=== PATIENT | male | born 1965 | race Caucasian/White ===

== ENCOUNTER 2023-05-09 23:45 | Observation (INO) | payer OTHER ==
[2023-05-10 01:05] LABS: Basophils # (A) 0.1 k/uL (0-0.2); Basophils % (A) 1 %; Eosinophils # (A) 0.2 k/uL (0-0.7); Eosinophils % (A) 2 %; HCT 43.4 % (39.0-53.0); HGB 14.7 gm/dL (13.0-17.5); Lymphocytes # (A) 2.1 k/uL (1.0-4.8); Lymphocytes % (A) 28 %; MCH 29.6 pg (25.0-35.0); MCHC 33.8 g/dL (31.0-37.0); MCV 87.6 fL (80.0-100.0); Mean Platelet Volume 8.6; Monocytes # (A) 0.5 k/uL (0-1.0); Monocytes % (A) 6 %; Neutrophils # (A) 4.5 k/uL (1.3-7.7); Neutrophils % (A) 60 %; Platelet Count 242 k/uL (150-450); RBC 4.96 m/uL (4.30-5.90); RDW 12.9 % (11.5-15.5); WBC 7.4 k/uL (3.8-10.6)
--- NOTE | 2023-05-10 01:11 | ED ---
General Adult HPI - General Chief complaint: Arrhythmia/Palpitations Stated complaint: AFib Time Seen by Provider: 05/09/23 23:51 Source: EMS Mode of arrival: EMS - History of Present Illness Initial comments: Dictation was produced using PEPper[employer] dictation software. please excuse any grammatical, word or spelling errors. Chief Complaint: 58-year-old male presents to the emergency department palpitations History of Present Illness: Patient is a 58-year-old male has past medical history of A-fib. He states that he was at home for the last 2 hours when all of a sudden he developed intense palpitations. States that he could feel his heartbeat in his chest. Patient has a history of A-fib. He does not take anticoagulation medications due to low [id number] score along with the risk of bleeding due to his occupation. Patient also complains of some mild pressure in his chest. The ROS documented in this emergency department record has been reviewed and confirmed by me. Those systems with pertinent positive or negative responses have been documented in the HPI. All other systems are other negative and/or noncontributory. - Related Data Allergies Allergy/AdvReac Type Severity Reaction Status Date / Time No Known Allergies Allergy Verified 05/09/23 23:53 Review of Systems ROS Statement: Those systems with pertinent positive or pertinent negative responses have been documented in the HPI. ROS Other: All systems not noted in ROS Statement are negative. Past Medical History Past Medical History: Atrial Fibrillation, Hypertension Additional Past Medical History / Comment(s): Pt states he has a heart murmur as well as ADHD Past Surgical History: Heart Catheterization, Orthopedic Surgery Additional Past Surgical History / Comment(s): Right shoulder surgery. Bursitis treatment General Exam - General Exam Comments Initial Comments: PHYSICAL EXAM: General Impression: Alert and oriented x3, not in acute distress HEENT: Normocephalic atraumatic, extra-ocular movements intact, pupils equal and reactive to light bilaterally, mucous membranes moist. Cardiovascular: Irregular Chest: Able to complete full sentences, no retractions, no tachypnea Abdomen: abdomen soft, non-tender, non-distended, no organomegaly Musculoskeletal: Pulses present and equal in all extremities, no peripheral edema Motor: no focal deficits noted Neurological: CN II-XII grossly intact, no focal motor or sensory deficits noted Skin: Intact with no visualized rashes Psych: Normal affect and mood Course Vital Signs 05/09/23 05/10/23 23:46 01:05 Temperature 98 F Pulse Rate 126 H 89 Respiratory 18 18 Rate Blood Pressure 142/121 110/81 O2 Sat by Pulse 98 96 Oximetry EKG Findings - EKG Comments: EKG Findings:: My EKG interpretation: Ventricular rate 105, A-fib, QRS 100, QTc 395. NoQTC prolongation, no ST or T-wave changes noted. Overall, this EKG is unremarkable Medical Decision Making - Medical Decision Making Was pt. sent in by a medical professional or institution (, PEDRO, SHIPPING SPECIALIST, urgent care, hospital, or senior care...) When possible be specific @ -No Did you speak to anyone other than the patient for history (EMS, parent, family, police, friend...)? What history was obtained from this source @ -No Did you review nursing and triage notes (agree or disagree)? Why? @ -I reviewed and agree with nursing and triage notes Were old charts reviewed (outside hosp., previous admission, EMS record, old EKG, old radiological studies, urgent care reports/EKG's, senior care records)? Report findings @ -No old charts were reviewed Differential Diagnosis (chest pain, altered mental status, abdominal pain women, abdominal pain men, vaginal bleeding, musculoskeletal, weakness, fever, dyspnea, syncope, headache, dizziness, GI bleed, back pain, seizure, CVA, palpatations, mental health)? @ -Differential Chest Pain: Stable Angina, Unstable Angina, STEMI, NSTEMI Aortic Dissection, Pneumothorax, Musculoskeletal, Esophageal Spasm GERD, Cholecystitis, Pancreatitis, Zoster, this is not meant to be an all-inclusive list. EKG interpreted by me (3pts min.). @ -See above X-rays interpreted by me (1pt min.). @ -Chest x-ray shows no acute processes CT interpreted by me (1pt min.). @ -None done U/S interpreted by me (1pt. min.). @ -None done What testing was considered but not performed or refused? (CT, X-rays, U/S, labs)? Why? @ -None What meds were considered but not given or refused? Why? @ -None Did you discuss the management of the patient with other professionals (professionals i.e. , PEDRO, SHIPPING SPECIALIST, lab, RT, psych nurse, social services technician, deputy treasurer, teacher, correctional security officer, counter caser)? Give summary @ -Case discussed with hospitalist for admission Was smoking cessation discussed for >3mins.? @ -No Was critical care preformed (if so, how long)? @ -No Were there social determinants of health that impacted care today? How? (Homelessness, low income, unemployed, alcoholism, drug addiction, transportation, low edu. Level, literacy, decrease access to med. care, nursing home, rehab)? @ -No Was there de-escalation of care discussed even if they declined (Discuss DNR or withdrawal of care, Hospice)? DNR status @ -No What co-morbidities impacted this encounter? (DM, HTN, Smoking, COPD, CAD, Cancer, CVA, ARF, Chemo, Hep., AIDS, mental health diagnosis, sleep apnea, morbid obesity)? @ -None Was patient admitted / discharged? Hospital course, mention meds given and route, prescriptions, significant lab abnormalities, going to OR and other perti nent info. @ -58-year-old male presents emergency department with palpitations and atypical chest pain typical features. V vital signs upon arrival showed slight tachycardia. He is in A-fib. Patient's A-fib was rate controlled at rest while at the bedside. Laboratory evaluation is unremarkable. Troponin is negative. Patient states that he has pressure to his chest. Suspect that patient having acute coronary syndrome. Disposition options were discussed he is agreeable with observation admission with consultation to cardiology. Patient given aspirin Undiagnosed new problem with uncertain prognosis? @ -No Drug Therapy requiring intensive monitoring for toxicity (Heparin, Nitro, Insul in, Cardizem)? @ -No Were any procedures done? @ -No Diagnosis/symptom? Acute, or Chronic, or Acute on Chronic? Uncomplicated (without systemic symptoms) or Complicated (systemic symptoms)? @ -Chest pain Side effects of treatment? @ -No Exacerbation, Progression, or Severe Exacerbation? @ -No Poses a threat to life or bodily function? How? (Chest pain, USA, PR, pneumonia, PE, COPD, DKA, ARF, appy, cholecystitis, CVA, Diverticulitis, Homicidal, Suicidal, threat to staff... and all critical care pts) @ -Yes - Lab Data Result diagrams: 05/10/23 00:51 05/10/23 00:51 Lab Results 05/10/23 05/10/23 05/10/23 Range/Units 00:51 00:51 00:51 WBC 7.4 (3.8-10.6) k/uL RBC 4.96 (4.30-5.90) m/uL Hgb 14.7 (13.0-17.5) gm/dL Hct 43.4 (39.0-53.0) % MCV 87.6 (80.0-100.0) fL MCH 29.6 (25.0-35.0) pg MCHC 33.8 (31.0-37.0) g/dL RDW 12.9 (11.5-15.5) % Plt Count 242 (150-450) k/uL MPV 8.6 Neutrophils % 60 % Lymphocytes % 28 % Monocytes % 6 % Eosinophils % 2 % Basophils % 1 % Neutrophils # 4.5 (1.3-7.7) k/uL Lymphocytes # 2.1 (1.0-4.8) k/uL Monocytes # 0.5 (0-1.0) k/uL Eosinophils # 0.2 (0-0.7) k/uL Basophils # 0.1 (0-0.2) k/uL PT 10.3 (10.0-12.5) sec INR 0.9 (<1.2) APTT 26.8 (22.0-30.0) sec Sodium 141 (137-145) mmol/L Potassium 3.5 (3.5-5.1) mmol/L Chloride 107 (98-107) mmol/L Carbon Dioxide 24 (22-30) mmol/L Anion Gap 10 mmol/L BUN 23 H (9-20) mg/dL Creatinine 0.95 (0.66-1.25) mg/dL Est GFR (CKD-EPI)AfAm >90 (>60 ml/min/1.73 sqM) Est GFR (CKD-EPI)NonAf 87 (>60 ml/min/1.73 sqM) Glucose 113 H (74-99) mg/dL Calcium 10.0 (8.4-10.2) mg/dL Magnesium 1.9 (1.6-2.3) mg/dL Total Bilirubin 0.4 (0.2-1.3) mg/dL AST 27 (17-59) U/L ALT 25 (4-49) U/L Alkaline Phosphatase 99 (38-126) U/L Troponin I (0.000-0.034) ng/mL Total Protein 7.1 (6.3-8.2) g/dL Albumin 4.2 (3.5-5.0) g/dL 05/10/23 Range/Units 00:51 WBC (3.8-10.6) k/uL RBC (4.30-5.90) m/uL Hgb (13.0-17.5) gm/dL Hct (39.0-53.0) % MCV (80.0-100.0) fL MCH (25.0-35.0) pg MCHC (31.0-37.0) g/dL RDW (11.5-15.5) % Plt Count (150-450) k/uL MPV Neutrophils % % Lymphocytes % % Monocytes % % Eosinophils % % Basophils % % Neutrophils # (1.3-7.7) k/uL Lymphocytes # (1.0-4.8) k/uL Monocytes # (0-1.0) k/uL Eosinophils # (0-0.7) k/uL Basophils # (0-0.2) k/uL PT (10.0-12.5) sec INR (<1.2) APTT (22.0-30.0) sec Sodium (137-145) mmol/L Potassium (3.5-5.1) mmol/L Chloride (98-107) mmol/L Carbon Dioxide (22-30) mmol/L Anion Gap mmol/L BUN (9-20) mg/dL Creatinine (0.66-1.25) mg/dL Est GFR (CKD-EPI)AfAm (>60 ml/min/1.73 sqM) Est GFR (CKD-EPI)NonAf (>60 ml/min/1.73 sqM) Glucose (74-99) mg/dL Calcium (8.4-10.2) mg/dL Magnesium (1.6-2.3) mg/dL Total Bilirubin (0.2-1.3) mg/dL AST (17-59) U/L ALT (4-49) U/L Alkaline Phosphatase (38-126) U/L Troponin I <0.012 (0.000-0.034) ng/mL Total Protein (6.3-8.2) g/dL Albumin (3.5-5.0) g/dL Disposition Clinical Impression: Chest pain Disposition: ADMITTED IP TO THIS HOSP Condition: Fair Referrals: Josh Graham DO [Primary Care Provider] - 1-2 days Decision Time: 01:47
[2023-05-10 01:13] LABS: INR 0.9 (<1.2); Partial Thromboplastin Time 26.8 sec (22.0-30.0); Prothrombin Time 10.3 sec (10.0-12.5)
--- NOTE | 2023-05-10 01:14 | XR ---
EXAMINATION TYPE: XR chest 2V DATE OF EXAM: 05/10/2023 COMPARISON: NONE HISTORY: Chest pain. Atrial fibrillation. TECHNIQUE: Frontal and lateral views of the chest are obtained. FINDINGS: There is no focal air space opacity, pleural effusion, or pneumothorax seen. Somewhat low lung volumes. The cardiac silhouette size is mildly enlarged. The osseous structures are intact. IMPRESSION: Mild cardiomegaly without acute pulmonary process.
[2023-05-10 01:21] LABS: ALT 25 U/L (4-49); AST 27 U/L (17-59); African American GFR (CKD) >90 (>60 ml/min/1.73 sqM); Albumin 4.2 g/dL (3.5-5.0); Alkaline Phosphatase 99 U/L (38-126); Anion Gap 10 mmol/L; Blood Urea Nitrogen 23 mg/dL (9-20); Carbon Dioxide 24 mmol/L (22-30); Chloride 107 mmol/L (98-107); Glucose 113 mg/dL (74-99); Magnesium 1.9 mg/dL (1.6-2.3); Non-African American GFR(CKD) 87 (>60 ml/min/1.73 sqM); Potassium 3.5 mmol/L (3.5-5.1); Sodium 141 mmol/L (137-145); Total Bilirubin 0.4 mg/dL (0.2-1.3); Total Protein 7.1 g/dL (6.3-8.2)
[2023-05-10] MEDS ORDERED: NITROGLYCERIN SL TABS 0.4 MG TAB SUBLINGUAL PRN (01:43)
[2023-05-10] MEDS: ASPIRIN 81 MG PO STA (01:53)
[2023-05-10] MEDS ORDERED: ONDANSETRON 4 MG/2 ML VIAL IVP PRN (06:15)
[2023-05-10] MEDS ORDERED: ACETAMINOPHEN TAB 325 MG TAB PO PRN (06:15)
--- NOTE | 2023-05-10 10:05 | CA ---
Transthoracic Echo Report Name: Joe Rowe Age: 58 Gender: M : 1965 Exam Date: 05/10/2023 08:10 Exam Location: [place] [facility] Ht (in): 71 Wt (lb): 215 Ordering Physician: Emelyn Serrano Attending/Referring Phys: [id number], Maggie Supervisor [employer] Yoana Cagle RCS Procedure CPT: Indications: LV function, chest pain Cardiac Hx: Technical Quality: Technically difficult study Contrast 1: Definity Total Dose (mL): 2 Contrast 2: Total Dose (mL): MEASUREMENTS (Male / Female) Normal Values 2D ECHO LV Diastolic Diameter PLAX 4.8 cm 4.2 - 5.9 / 3.9 - 5.3 cm LV Systolic Diameter PLAX 3.9 cm IVS Diastolic Thickness 0.8 cm 0.6 - 1.0 / 0.6 - 0.9 cm LVPW Diastolic Thickness 0.7 cm 0.6 - 1.0 / 0.6 - 0.9 cm LV Relative Wall Thickness 0.3 RV Internal Dim ED PLAX 2.9 cm LVOT Diameter 2.3 cm LV Diastolic Volume MOD BP 104.9 cm??? 67 - 155 / 56 - 104 cm??? LV Systolic Volume MOD BP 35.0 cm??? 22 - 58 / 19 - 49 cm??? LV Ejection Fraction MOD BP 66.6 % >= 55 % LV Cardiac Index MOD BP 2598.1 cm???/min???m??? LV Diastolic Volume MOD 4C 101.3 cm??? LV Systolic Volume MOD 4C 33.6 cm??? LV Ejection Fraction MOD 4C 66.8 % LV Cardiac Index MOD 4C 2515.3 cm???/min???m??? LV Diastolic Length 4C 7.5 cm LV Systolic Length 4C 6.2 cm LV Diastolic Volume MOD 2C 105.2 cm??? LV Systolic Volume MOD 2C 36.1 cm??? LV Ejection Fraction MOD 2C 65.7 % LV Cardiac Index MOD 2C 2567.8 cm???/min???m??? LV Diastolic Length 2C 7.8 cm LV Systolic Length 2C 6.1 cm LA Volume 67.1 cm??? 18 - 58 / 22 - 52 cm??? LA Volume Index 30.1 cm???/m??? 16 - 28 cm???/m??? Ascending Aorta Diameter 3.5 cm DOPPLER AV Peak Velocity 113.1 cm/s AV Peak Gradient 5.1 mmHg AV Mean Velocity 71.4 cm/s AV Mean Gradient 2.4 mmHg AV Velocity Time Integral 20.2 cm LVOT Peak Velocity 95.4 cm/s LVOT Peak Gradient 3.6 mmHg LVOT Velocity Time Integral 17.2 cm LVOT Stroke Volume 69.9 cm??? LVOT Stroke Volume Index 32.1 ml/m??? LVOT Cardiac Index 2597.4 cm???/min???m??? AV Area Cont Eq vti 3.5 cm??? AV Area Cont Eq pk 3.4 cm??? PV Peak Velocity 78.3 cm/s PV Peak Gradient 2.5 mmHg FINDINGS Left Ventricle Left ventricular ejection fraction is estimated at 50-55 %. Left ventricular wall thickness normal. Left ventricular cavity size normal. No obvious regional wall motion abnormalities. Right Ventricle Normal right ventricular size and function. Right Atrium Normal right atrial size. Left Atrium Mildly increased left atrial volume. Mitral Valve Structurally normal mitral valve. No evidence for mitral valve prolapse. No mitral stenosis. Trace mitral regurgitation. Aortic Valve Trileaflet aortic valve. No aortic stenosis. No aortic regurgitation. Tricuspid Valve Structurally normal tricuspid valve. No tricuspid stenosis. Trace tricuspid regurgitation. Pulmonic Valve Structurally normal pulmonic valve. No pulmonic stenosis. No pulmonic regurgitation. Pericardium No pericardial effusion. Aorta Normal size aortic root and proximal ascending aorta. CONCLUSIONS Normal LV systolic function Previewed by: Dr. Roger Montenegro MD (Electronically Signed) Final Date: 10 May 2023 10:04
--- NOTE | 2023-05-10 10:20 | P.CRDCN ---
History of Present Illness History of present illness: HISTORY OF PRESENT ILLNESS: This is a 58-year-old male with a past medical history significant for paroxysmal atrial fibrillation, hypertension, hyperlipidemia, and former nicotine dependence. Patient follows in the office with Dr. Alejo. We have been asked to see the patient in consultation for chest pain. Patient examined at the bedside. Patient states he began having chest pain last night. Patient states he felt his heart pounding in his chest which was more intense than regular palpitations he has felt in the past. He also reports feeling chest pressure in the middle of his chest. He reports having tingling in both of his hands as well. He denied having any shortness of breath. Patient states he is adopted and does not know his family history. He is a former cigarette smoker and quit smoking in 1997. Patient reports having a heart catheterization performed in which was normal at that time to his recollection. DIAGNOSTICS: - EKG reveals atrial fibrillation with controlled ventricular rate. - Chest xray mild cardiomegaly without acute pulmonary process. - Laboratory data: WBC 7.4. Hemoglobin 14.7. Platelet count 242. Sodium 141. Potassium 3.5. BUN 23. Creatinine 0.95. Magnesium 1.9. Troponin negative x 3 - Current home cardiac medications include metoprolol tartrate 25 mg at night, flecainide 50 mg twice a day, lisinopril hydrochlorothiazide 20-25 mg daily, rosuvastatin 20 mg at night, aspirin 81 mg daily. - Echocardiogram completed revealing ejection fraction 50 to 55% with trace MR REVIEW OF SYSTEMS: At the time of my exam: CONSTITUTIONAL: Denies fever or chills. HEENT: Denies blurred vision, vision changes, or eye pain. Denies hemoptysis CARDIOVASCULAR: Denies chest pain. Denies orthopnea. Denies PND. Denies palpitations RESPIRATORY: Denies shortness of breath. GASTROINTESTINAL: Denies abdominal pain. Denies nausea or vomiting. HEMATOLOGIC: Denies bleeding disorders. GENITOURINARY: Denies any blood in urine. SKIN: Denies pruitis. Denies rash. PHYSICAL EXAM: VITAL SIGNS: Reviewed. GENERAL: Well-developed in no acute distress. HEENT: Head is normocephalic. Pupils are equal, round. Sclerae anicteric. Mucous membranes of the mouth are moist. Neck supple. No JVD or thyromegaly LUNGS: Respirations even and unlabored. Lungs essentially clear to auscultation bilaterally. HEART: Irregular rate and rhythm. S1 and S2 heard. ABDOMEN: Soft. Nondistended. Nontender. EXTREMITIES: Normal range of motion. No clubbing or cyanosis. Peripheral pulses intact. No lower extremity edema NEUROLOGIC: Awake and alert. Oriented x 3. ASSESSMENT: Chest pain, troponin negative x 3 Paroxysmal atrial fibrillation with controlled ventricular rate Hypertension Hyperlipidemia Former nicotine dependence PLAN: An acute coronary event has been ruled out Resume home cardiac medications Patient to undergo stress echocardiogram today If negative, will discharge the patient home on oral anticoagulation and plan for outpatient cardioversion Further recommendations pending patient course Nurse practitioner note has been reviewed by physician. Signing provider agrees with the documented findings, assessment, and plan of care documented by GAS STATION ATTENDANT as a scribe. Past Medical History Past Medical History: Atrial Fibrillation, Hypertension Additional Past Medical History / Comment(s): Pt states he has a heart murmur as well as ADHD Past Surgical History: Heart Catheterization, Orthopedic Surgery Additional Past Surgical History / Comment(s): Right shoulder surgery. Bursitis treatment Medications and Allergies Home Medications Medication Instructions Recorded Confirmed Type Aspirin EC [Ecotrin Low Dose] 81 mg PO DAILY 05/10/23 05/10/23 History Celecoxib [CeleBREX] 200 mg PO DAILY 05/10/23 05/10/23 History Cyanocobalamin (Vitamin B-12) 1,000 mcg PO DAILY 05/10/23 05/10/23 History [Vitamin B-12] Docusate [Colace] 100 mg PO DAILY 05/10/23 05/10/23 History Flecainide [Tambocor] 50 mg PO BID 05/10/23 05/10/23 History Lisinopril-Hctz 20-25 mg 1 tab PO DAILY 05/10/23 05/10/23 History [Zestoretic 20-25] Metoprolol Tartrate 25 mg PO HS 05/10/23 05/10/23 History Multivitamins, Thera [Multivitamin 1 tab PO DAILY 05/10/23 05/10/23 History (formulary)] Omeprazole [PriLOSEC] 40 mg PO DAILY 05/10/23 05/10/23 History Psyllium Husk [Fiber Capsule] 0.4 gm PO DAILY 05/10/23 05/10/23 History Rosuvastatin [Crestor] 20 mg PO HS 05/10/23 05/10/23 History traMADol HCL 50 mg PO BID PRN 05/10/23 05/10/23 History traMADol HCL 100 mg PO DAILY 05/10/23 05/10/23 History Allergies Allergy/AdvReac Type Severity Reaction Status Date / Time No Known Allergies Allergy Verified 05/09/23 23:53 Physical Exam Vitals: Vital Signs Temp Pulse Pulse Resp BP BP Pulse Ox 05/10/23 07:38 97.5 F L 76 19 127/85 99 05/10/23 06:53 87 18 128/88 96 05/10/23 01:55 84 18 118/98 96 05/10/23 01:05 89 18 110/81 96 05/09/23 23:46 98 F 126 H 18 142/121 98 Intake and Output 05/09/23 05/10/23 05/10/23 22:59 06:59 14:59 Other: Weight 97.522 kg Results 05/10/23 00:51 05/10/23 00:51 Cardiac Enzymes 05/10/23 05/10/23 05/10/23 Range/Units 00:51 00:51 04:26 AST 27 (17-59) U/L Troponin I <0.012 <0.012 (0.000-0.034) ng/mL Coagulation 05/10/23 Range/Units 00:51 PT 10.3 (10.0-12.5) sec APTT 26.8 (22.0-30.0) sec CBC 05/10/23 Range/Units 00:51 WBC 7.4 (3.8-10.6) k/uL RBC 4.96 (4.30-5.90) m/uL Hgb 14.7 (13.0-17.5) gm/dL Hct 43.4 (39.0-53.0) % Plt Count 242 (150-450) k/uL Comprehensive Metabolic Panel 05/10/23 Range/Units 00:51 Sodium 141 (137-145) mmol/L Potassium 3.5 (3.5-5.1) mmol/L Chloride 107 (98-107) mmol/L Carbon Dioxide 24 (22-30) mmol/L BUN 23 H (9-20) mg/dL Creatinine 0.95 (0.66-1.25) mg/dL Glucose 113 H (74-99) mg/dL Calcium 10.0 (8.4-10.2) mg/dL AST 27 (17-59) U/L ALT 25 (4-49) U/L Alkaline Phosphatase 99 (38-126) U/L Total Protein 7.1 (6.3-8.2) g/dL Albumin 4.2 (3.5-5.0) g/dL Current Medications Generic Name Dose Route Start Last Admin Trade Name Freq PRN Reason Stop Dose Admin Acetaminophen 650 mg 05/10/23 06:15 Acetaminophen Tab 325 Mg Tab PO Q6HR PRN Fever and/ or Pain Aspirin 81 mg 05/10/23 09:00 Aspirin 81 Mg PO DAILY NICKOLAS Nitroglycerin 0.4 mg 05/10/23 01:43 Nitroglycerin Sl Tabs 0.4 Mg Tab SUBLINGUAL Q5M PRN Chest Pain Ondansetron HCl 4 mg 05/10/23 06:15 Ondansetron 4 Mg/2 Ml Vial IVP Q6HR PRN Nausea And Vomiting Pantoprazole Sodium 40 mg 05/10/23 07:30 Pantoprazole 40 Mg Tablet PO AC-BRKFST [facility] Intake and Output 05/09/23 05/10/23 05/10/23 22:59 06:59 14:59 Other: Weight 97.522 kg 05/10/23 00:51 05/10/23 00:51
[2023-05-10] MEDS: LISINOPRIL-HCTZ 20-25 MG 1 EACH TAB PO SCH (13:05)
[2023-05-10] MEDS: FLECAINIDE 50 MG TAB PO SCH (13:05)
[2023-05-10] MEDS: ASPIRIN 81 MG PO SCH ×2 (13:05→13:55)
[2023-05-10] MEDS: PANTOPRAZOLE 40 MG TABLET PO SCH (13:05)
--- NOTE | 2023-05-10 14:21 | CA ---
Stress Echo Report Joe Rowe Age: 58 Gender: M : 1965 Exam Date: 05/10/2023 11:04 Exam Location: [place] [facility] Ht (in): 71 Wt (lb): 215 Ordering Physician: Emelyn Serrano Referring Physician: [id number] Lead Athlete: Kurt Candelaria Technologist Procedure CPT: Indication: CP ICD-9 Codes: Rhythm: Patient History: CP, PALP, HTN, CHOL, TOB, CATH Cardiac Medications: SEE CHART Medications in past 24 hours: Contrast: Stress Results Protocol: Chepe Total dose(mL): Exercise Duration (min:sec): 9:[address] Depression (mm): Angina Score: Torrez Score: METS: 10.3 Resting HR: 129 Resting BP: 119 / 85 Peak HR: 171 Peak BP: 168 / 100 Max Predicted HR: 160 107 % Max Predicted HR Target HR: 136 Double Product: [id number] Stress Summary: BP Response: Reason for Termination: Reached target heart rate or work-load Cardiac Symptoms: ASYMPTOMATIC ECG Analysis Resting ECG: Stress ECG: Arrhythmia: Echo Analysis Resting Echo: Peak Echo Analysis: MEASUREMENTS (Male/Female) Normal Values CONCLUSIONS Excellent exercise tolerance The EKG part is nondiagnostic because of baseline changes. Normal echocardiogram in response to exercise was no evidence of wall motion abnormalities concerning for ischemia Dr. Roger Montenegro MD (Electronically Signed) Final Date: 10 May 2023 14:20
[2023-05-10 14:41] VITALS: BP 116/73; PULSE 68; RESP 16; TEMP 97.6
[2023-05-10] MEDS ORDERED: METOPROLOL TARTRATE 25 MG TAB PO SCH (21:00)
[2023-05-10] MEDS ORDERED: ATORVASTATIN 40 MG TAB PO SCH (21:00)
[2023-05-11] MEDS ORDERED: ASPIRIN 325 MG TAB PO SCH (09:00)
== END 2023-05-10 16:53 | disposition home or self-care (01) ==
LOC: EC 23:45 → 6NMEDSUR 05-10 01:43
PROVIDERS: ADMIT Hospitalist; ATTEND Hospitalist
DX: R07.89 Other chest pain (principal); I48.0 Paroxysmal atrial fibrillation; I11.9 Hypertensive heart disease without heart failure; E78.5 Hyperlipidemia, unspecified; R20.2 Paresthesia of skin; Z79.82 Long term (current) use of aspirin; Z79.1 Long term (current) use of non-steroidal anti-inflammatories (NSAID); Z79.899 Other long term (current) drug therapy; Z87.891 Personal history of nicotine dependence
CPT/HCPCS: 99285; 36415; 93005; 93306; 93351; 80053; 83735; 84484; 85025; 85610; 85730; 71046; G0378; Q9957

== ENCOUNTER → 2023-07-12 | Outpatient (CLI) | payer OTHER ==
[2023-07-13 03:11] LABS: HCT 39.3 % (39.6-50.0); HGB 13.1 g/dL (13.0-17.0); MCHC 33.3 g/dL (32.0-37.0); MCV 90.1 FL (80.0-97.0); Mean Platelet Volume 11.1 FL (9.5-12.2); NRBC Per 100 WBC 0 X 10*3/uL (0.00-0.01); Platelet Count 268 X 10*3/uL (140-440); RBC 4.36 X 10*6/uL (4.40-5.60); RDW 12.8 % (11.5-14.5); WBC 6.52 X 10*3/uL (4.50-10.00)
[2023-07-13 03:24] LABS: Blood Urea Nitrogen 16.2 mg/dL (9.0-27.0); Carbon Dioxide 27.6 mmol/L (21.6-31.8); Chloride 104 mmol/L (96-109); Potassium 4.1 mmol/L (3.5-5.5); Sodium 141 mmol/L (135-145)
== END | disposition home or self-care (01) ==
LOC: LABWHC1 16:36
PROVIDERS: ATTEND Internal Medicine Clinical Cardiac Electrophysiology
DX: Z01.812 Encounter for preprocedural laboratory examination (principal); I48.0 Paroxysmal atrial fibrillation
CPT/HCPCS: 36415; 80051; 82565; 84520; 85027

== ENCOUNTER 2023-08-27 05:42 | Day surgery (SDC) | payer OTHER ==
[2023-08-27] MEDS: SODIUM CHLORIDE 0.9% 1,000 ML IV SCH (06:20)
[2023-08-27 07:13] LABS: ALT 26 U/L (4-49); African American GFR (CKD) >90 (>60 ml/min/1.73 sqM); Anion Gap 2 mmol/L; Basophils % (A) 1 %; Blood Urea Nitrogen 21 mg/dL (9-20); Calcium 9.6 mg/dL (8.4-10.2); Carbon Dioxide 29 mmol/L (22-30); Chloride 106 mmol/L (98-107); Eosinophils # (A) 0.1 k/uL (0-0.7); Eosinophils % (A) 3 %; Glucose 92 mg/dL (74-99); HCT 40.2 % (39.0-53.0); HGB 13.1 gm/dL (13.0-17.5); Lymphocytes # (A) 1.2 k/uL (1.0-4.8); Lymphocytes % (A) 27 %; MCH 30.4 pg (25.0-35.0); MCHC 32.6 g/dL (31.0-37.0); MCV 93.2 fL (80.0-100.0); Mean Platelet Volume 7.9; Monocytes # (A) 0.3 k/uL (0-1.0); Monocytes % (A) 7 %; Neutrophils # (A) 2.8 k/uL (1.3-7.7); Neutrophils % (A) 62 %; Non-African American GFR(CKD) 86 (>60 ml/min/1.73 sqM); Platelet Count 228 k/uL (150-450); RBC 4.32 m/uL (4.30-5.90); RDW 12.5 % (11.5-15.5); Sodium 137 mmol/L (137-145); WBC 4.6 k/uL (3.8-10.6)
[2023-08-27 07:39] LABS: AST 39 U/L (17-59); Albumin 3.9 g/dL (3.5-5.0); Alkaline Phosphatase 60 U/L (38-126); Potassium 4.7 mmol/L (3.5-5.1); Total Bilirubin 0.8 mg/dL (0.2-1.3); Total Protein 6.8 g/dL (6.3-8.2)
--- NOTE | 2023-08-27 07:41 | P.HPCAR ---
History of Present Illness This is Dr. Hutson dictating an H/P on this patient The patient was interviewed and examined IMPRESSION / ASSESSMENT: Paroxysmal atrial fibrillation for several years despite flecainide and beta- blockers In sinus rhythm sinus bradycardia has been noted with first-degree AV block Most symptomatic episodes occur either at night or in the early hours of the morning Longstanding hypertension Past history of smoking, he has stopped that now Preserved LV systolic function PLAN: Continue anticoagulation, proceed with A-fib ablation Continue statins and antihypertensive therapy HPI Patient has recurrent episodes of palpitations especially since his episode of COVID This occurs despite flecainide He has underlying sinus bradycardia with first-degree AV block His hypertension is controlled ROS: No fever chills or rigors, no cough, phlegm or expectoration, no nausea, vomiting or diarrhea, no hematuria, dysuria, no musculoskeletal complaints, no strokes or seizures, no skin lesions. EXAMINATION: 112/72, pulse rate 55-60 bpm No JVD No orthopnea Normal heart sounds no murmurs no gallop no rub Clear lungs no rhonchi no crackles No lower extremity edema REVIEW OF LABS, ECG & MEDICAL DATA Hemoglobin 13 normal platelet count Normal electrolytes Normal kidney function Normal liver function Physical Exam Vitals: Intake and Output 08/26/23 08/27/23 08/27/23 22:59 06:59 14:59 Intake Total 0 Balance 0 Intake: IV 0 Past Medical History Past Medical History: Atrial Fibrillation, Hyperlipidemia, Hypertension Additional Past Medical History / Comment(s): Pt states he has a heart murmur as well as ADHD. see dr Hutson's H & P History of Any Multi-Drug Resistant Organisms: MRSA Date of last positivie culture/infection: more than 1 year ago MDRO Source:: leg Past Surgical History: Appendectomy, Heart Catheterization, Orthopedic Surgery Additional Past Surgical History / Comment(s): Right shoulder surgery x4 rt hand surgery lft hand carpal tunnel, hemorrhoidectomy, vasectomy, lower lip surgery, rk surgery to eyes,rt thumb surgery. Bursitis treatment Additional Past Anesthesia/Blood Transfusion Reaction / Comment(s): slow to wake up Smoking Status: Former smoker - Past Family History Father Family Medical History: Unable to Obtain Additional Family Medical History / Comment(s): pt is adopted, biological father had colon cancer Physical Examination Intake and Output 08/26/23 08/27/23 08/27/23 22:59 06:59 14:59 Intake Total 0 Balance 0 Intake: IV 0 Results 08/27/23 06:32 08/27/23 06:32 Cardiac Enzymes 08/27/23 Range/Units 06:32 AST 39 (17-59) U/L CBC 08/27/23 Range/Units 06:32 WBC 4.6 (3.8-10.6) k/uL RBC 4.32 (4.30-5.90) m/uL Hgb 13.1 (13.0-17.5) gm/dL Hct 40.2 (39.0-53.0) % Plt Count 228 (150-450) k/uL Comprehensive Metabolic Panel 08/27/23 Range/Units 06:32 Sodium 137 (137-145) mmol/L Potassium 4.7 (3.5-5.1) mmol/L Chloride 106 (98-107) mmol/L Carbon Dioxide 29 (22-30) mmol/L BUN 21 H (9-20) mg/dL Creatinine 0.96 (0.66-1.25) mg/dL Glucose 92 (74-99) mg/dL Calcium 9.6 (8.4-10.2) mg/dL AST 39 (17-59) U/L ALT 26 (4-49) U/L Alkaline Phosphatase 60 (38-126) U/L Total Protein 6.8 (6.3-8.2) g/dL Albumin 3.9 (3.5-5.0) g/dL Current Medications Generic Name Dose Route Start Last Admin Trade Name Freq PRN Reason Stop Dose Admin Sodium Chloride 1,000 mls @ 50 mls/hr 08/27/23 05:47 08/27/23 07:19 Saline 0.9% IV 09/26/23 05:48 0 mls .Q20H NICKOLAS Administration Intake and Output 08/26/23 08/27/23 08/27/23 22:59 06:59 14:59 Intake Total 0 Balance 0 Intake: IV 0 08/27/23 06:32 08/27/23 06:32
[2023-08-27] MEDS ORDERED: LIDOCAINE 1% INJ 10MG/ML (20 ML MDV) ONE (07:43)
[2023-08-27] MEDS: HEPARIN SOD,PORK IN 0.45% NACL 25,000 UNIT in 0.45% NACL 1 250ML.BAG IV ONE (07:45)
[2023-08-27] MEDS: LIDOCAINE 1% INJ 10MG/ML (20 ML MDV) SQ ONE (07:58)
[2023-08-27] MEDS: IOPAMIDOL-370 100ML BTL INJ ONE (09:38)
[2023-08-27] MEDS: LACTATED RINGERS 1,000 ML IV ONE (10:01)
[2023-08-27] MEDS ORDERED: traMADol 50 MG TAB PO PRN (10:18)
[2023-08-27] MEDS ORDERED: ACETAMINOPHEN TAB 325 MG TAB PO PRN (10:24)
--- NOTE | 2023-08-27 10:31 | P.EPPROC ---
- EP Procedure Note Electrophysiology Procedure Note: PROCEDURE A. fib ablation DIAGNOSIS Paroxysmal atrial fibrillation, symptomatic, refractory to therapy Sick sinus syndrome, AV node disease RESULT No left atrial appendage mass seen on intracardiac echo Successful A. fib ablation/pulmonary vein isolation of all veins using cryo- ablation Complete entrance block in all 4 veins confirmed Transient phrenic nerve injury during septal ablation and ablation of the right superior pulmonary veins with rapid recovery Esophageal deflection YES PROCEDURE DETAILS Written informed consent prior to procedure. Patient brought to the EP lab. General anesthesia given. Heparin administered. A city maintained above 300 seconds Both groins prepped and draped per protocol and venous sheaths placed. Esophagus intubated, circa catheter for temperature monitoring an endoscope for possible esophageal deflection. Phrenic nerve monitoring performed. Esophageal temperature monitoring performed. Esophageal deflection performed if circa catheter overlapping with the balloon or circa temperature less than 27.5C Intracardiac echocardiography performed. Pericardium evaluated. Left atrial appendage evaluated. Left atrium evaluated along with pulmonary veins Transseptal catheterization performed under fluoroscopic guidance and intracardiac echo guidance Cryoablation sheath exchanged, balloon catheter along with achieve catheter placed in the left atrium. Pulmonary veins isolated in the following sequence: Left superior pulmonary vein followed by left inferior pulmonary vein, followed by right inferior pulmonary vein and lastly right superior pulmonary vein. Phrenic nerve stimulation along with capture thresholds within the SVC and right superior pulmonary vein to identify the phrenic nerve proximity to the cryo- balloon. Pulmonary veins isolated and confirmed with entrance and exit block. Phrenic nerve integrity confirmed at the end of the procedure Ablation of the left atrial septum performed with cannulation of the superior branch of the right inferior or the inferior branch of the right superior vein to achieve ablation of the posterior septum of the left atrium. Ablation of electrograms confirmed Diagnostic catheters for the high right atrium, His bundle, coronary sinus placed. LA and RA pressures recorded RA pressure: 9/7 LA pressure: 12//8 Diagnostic EP study with coronary sinus pacing and recording Baseline measurements: AH 138 ms, HV 56 ms GA interval 165, QRS 93 and QT interval 446 ms, sinus cycle length 971 ms Sinus node recovery times were 1196, 1612 and 1244 ms AV node Wenckebach block 550 ms Burst stimulation was performed from the high right atrium from 400 ms down to 300 ms without induction of atrial fibrillation High-dose Isopril was used. No atrial fibrillation induced Venous sheaths were removed and hemostasis assured with a closure device. Patient extubated and transferred to recovery Increase procedural time During ablation multiple attempts had to be made to move the esophagus a safe distance of the from the pulmonary vein draining cryoablation, to avoid excessive thermal cooling of the esophagus This took extra time and effort to keep the esophagus a safe distance away from the cryoablation balloon. During ablation of the right-sided veins, phrenic nerve paresis was noted but at least so when the right middle pulmonary vein underwent ablation and ablation of the posterior septum This was detected early in expeditiously with return of phrenic nerve function in less than 60 seconds. As a result short applications were delivered for the septal area and the right superior pulmonary veins alternating with ablation of the left-sided veins to avoid stacked cryoablations Multiple attempts needed for successful cryoablation isolation of the pulmonary vein PROCEDURES PERFORMED Diagnostic EP study CS pacing and recording Left and right transseptal catheterization Catheter the mapping of the tachycardia Intracardiac echocardiography Pulmonary vein isolation with transseptal and comprehensive EPS, 70811 Extended procedure duration Drug infusion, +[id number] Linear ablation, left atrium, +[id number]
[2023-08-27] MEDS: ACETAMINOPHEN IV (For NPO) 1,000 MG in EMPTY BAG 1 BAG IVPB ONE (11:33)
[2023-08-27] MEDS: APIXABAN 5 MG TAB PO SCH (20:26)
[2023-08-27] MEDS: FLECAINIDE 50 MG TAB PO SCH (20:26)
[2023-08-27] MEDS: ATORVASTATIN 40 MG TAB PO SCH (20:26)
[2023-08-28 07:48] VITALS: BP 132/82; PULSE 75; RESP 18; TEMP 98.1
[2023-08-28] MEDS: PANTOPRAZOLE 40 MG TABLET PO SCH (08:30)
[2023-08-28] MEDS: LISINOPRIL-HCTZ 20-25 MG 1 EACH TAB PO SCH (08:30)
[2023-08-28] MEDS: METOPROLOL TARTRATE 25 MG TAB PO SCH (08:31)
--- NOTE | 2023-08-28 09:59 | P.DS ---
Providers Attending physician: Krishna Hutson Primary care physician: [place] [facility] Course: Patient is resting comfortably in bed. No chest discomfort dizziness or lightheadedness He complains of tenderness in the groin. Minimal swelling in the left groin. 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 daily After 6 weeks, if he has no further episodes of atrial fibrillation then this should be discontinued Watch AV node conduction as an outpatient. Follow-up with Dr. Alejo Discussed with Dr. Alejo [facility] Plan - Discharge Summary Discharge Rx Participant: No New Discharge Prescriptions: New RX: Metoprolol Tartrate 12.5 mg PO DAILY #30 tab RX: Flecainide [Tambocor] 25 mg PO Q12HR #90 tablet Continue RX: Docusate [Colace] 100 mg PO DAILY RX: Lisinopril-Hctz 20-25 mg [Zestoretic 20-25] 1 tab PO DAILY RX: Apixaban [Eliquis] 5 mg PO BID #60 tab RX: Acetaminophen [Tylenol 8 Hour] 1,300 mg PO DAILY RX: traMADol HCL 50 mg PO BID PRN PRN Reason: Pain RX: Multivitamins, Thera [Multivitamin (formulary)] 1 tab PO DAILY RX: Cyanocobalamin (Vitamin B-12) [Vitamin B-12] 1,000 mcg PO DAILY RX: Rosuvastatin [Crestor] 20 mg PO HS RX: Omeprazole [PriLOSEC] 40 mg PO DAILY RX: Psyllium Husk [Fiber Capsule] 0.4 gm PO DAILY RX: Garlic 1,000 mg PO DAILY Discontinued RX: Metoprolol Tartrate 25 mg PO DAILY RX: Flecainide [Tambocor] 50 mg PO BID Discharge Medication List RX: Apixaban [Eliquis] 5 mg PO BID #60 tab 05/10/23 [Rx] RX: Cyanocobalamin (Vitamin B-12) [Vitamin B-12] 1,000 mcg PO DAILY 05/10/23 [History] RX: Docusate [Colace] 100 mg PO DAILY 05/10/23 [History] RX: Lisinopril-Hctz 20-25 mg [Zestoretic 20-25] 1 tab PO DAILY 05/10/23 [History] RX: Multivitamins, Thera [Multivitamin (formulary)] 1 tab PO DAILY 05/10/23 [History] RX: Omeprazole [PriLOSEC] 40 mg PO DAILY 05/10/23 [History] RX: Psyllium Husk [Fiber Capsule] 0.4 gm PO DAILY 05/10/23 [History] RX: Rosuvastatin [Crestor] 20 mg PO HS 05/10/23 [History] RX: traMADol HCL 50 mg PO BID PRN 05/10/23 [History] RX: Acetaminophen [Tylenol 8 Hour] 1,300 mg PO DAILY 08/23/23 [History] RX: Garlic 1,000 mg PO DAILY 08/23/23 [History] RX: Flecainide [Tambocor] 25 mg PO Q12HR #90 tablet 08/28/23 [Rx] RX: Metoprolol Tartrate 12.5 mg PO DAILY #30 tab 08/28/23 [Rx] Follow up Appointment(s)/Referral(s): Cruz Alejo MD [STAFF PHYSICIAN] - 09/05/23 1:30 pm Patient Instructions/Handouts: How to Use an Incentive Spirometer (DC), Cardiac Ablation (DC) Activity/Diet/Wound Care/Special Instructions: Post EP study - Ablation instructions 1. Keep access sites dry for 2 days. 2. No heavy lifting or straining for 2 days. 3. Avoid bending the hips repeatedly for 2 days. 4. You may go up and down stairs slowly Call if the following is noted 1. Bleeding, increasing swelling or pain at the access sites. 2. Increasing chest discomfort, especially upon taking a deep breath. 3. Increasing shortness of breath, at rest or with exertion. 4. Undue cough / phlegm 5. Difficulty or pain while swallowing. 6. Pain or change in color in the extremities. 7. Fever, chills, rigors. 8. Increasing headache or neurologic symptoms. 9. Dizziness, fainting, palpitations Follow-up with Dr. Alejo in 1 week Do not stop Eliquis, avoid any minor surgery procedure that will require temporary discontinuation of Eliquis for the next 2 to 3 months Continue all other medications unchanged Discharge Disposition: HOME SELF-CARE
== END 2023-08-28 11:35 | disposition home or self-care (01) ==
LOC: CATHEP 05:42 → 6NMEDSUR 09:45 → CATHEP 08-28 11:35
PROVIDERS: ATTEND Internal Medicine Clinical Cardiac Electrophysiology
DX: I48.0 Paroxysmal atrial fibrillation (principal); I49.5 Sick sinus syndrome; I10 Essential (primary) hypertension; I44.0 Atrioventricular block, first degree; R00.1 Bradycardia, unspecified; R01.1 Cardiac murmur, unspecified; E78.5 Hyperlipidemia, unspecified; F90.9 Attention-deficit hyperactivity disorder, unspecified type; Z86.14 Personal history of Methicillin resistant Staphylococcus aureus infection; Z86.16 Personal history of COVID-19; Z87.891 Personal history of nicotine dependence; Z79.01 Long term (current) use of anticoagulants; Z79.899 Other long term (current) drug therapy
CPT/HCPCS: 93623; 93656; 93657; 86900; 86901; 80053; 84443; 85025; 86850; C1894 ×2; C1769 ×3; C1760 ×2; C1730 ×2; C1893; C1733; C1766; J2001; J0131; Q9967; J1644